=== PATIENT | male | born 2005 | race Caucasian/White ===

== ENCOUNTER 2024-07-28 08:31 | Emergency (ER) | payer BC, SELFPAY ==
[2024-07-28] VITALS (7 sets, daily range): BP systolic 89–125; BP diastolic 61–106; BMI 17.2
[2024-07-28] MEDS: NSS 1000 IV (10:33)
--- NOTE | 2024-07-28 10:44 | ED.GENMED ---
History of Present Illness
General
Chief Complaint: Fainting/Passed Out
Source: patient and family
Exam Limitations: none
Time Seen by Provider: 07/28/24 10:06
Nursing documentation reviewed up to this point in time: agreed with except (Patient denies any abdominal cramping or pain during episode.)
History of Present Illness
History of Present Illness:
Patient is a 19-year-old biological male (transgender ) presents to the ER for evaluation. Patient is on hormone replacement including estradiol spironolactone and progesterone. This morning patient woke up and felt some left-sided rib pain like
she' pulled a muscle.' She denies any injury. She walked to the bathroom because she felt very nauseous and had dry heaves and then felt hot and had a witnessed syncopal episode by mom. Mom reports she was probably out for couple seconds. She
got up and walked her to the steps to take her upstairs and she passed out again. Currently patient is feeling better. She had no associated shortness of breath and denies any shortness of breath now. The rib pain is resolved. Patient mentioned
abdominal cramping in triage note however denies any abdominal pain /cramping.
Her progesterone was recently creased from 100 mg once a day to 200 mg twice a day.
Patient does not smoke. History of DVT PE. She does go to school in [facility] and recently flew back last week.
She denies any lower extremity swelling or pain.
Review of Systems
Review of Systems
Allergies reviewed?: Yes
All Other Systems: ROS reviewed and negative except as documented in HPI and ROS
Constitutional: Reports no symptoms; Denies fever, fatigue or chills
Respiratory: Reports no symptoms; Denies trouble breathing
Cardiac: Reports syncope
ABD/GI: Reports nausea; Denies vomiting
Musculoskeletal: Reports no symptoms
Neurological: Reports no symptoms
Psychiatric: Reports no symptoms
Phy Exam
General Physical Exam
General Presentation: no apparent distress
General age: appears stated age
General Skin: warm and dry
General Mental: alert
General Hydration: appears well hydrated
Cardiovascular Exam
Cardiovascular Exam: regular rate/rhythm, no murmur and normal peripheral pulses
Pulmonary Exam
Pulmonary Exam: lungs clear and no respiratory distress
Neurological Exam
Neurological Exam: alert and oriented x3
Musculoskeletal Exam
Musculoskeletal Exam: full ROM
Skin Exam
Skin Exam: normal color and warm/dry
Psychiatric Exam
Psychiatric Exam: normal mood/affect
Course
Orders/Labs/Results
Orders:
Orders
07/28/24 09:00
EKG [Electrocardiogram (*1)] Urgent
Reason for Study: Syncope
07/28/24 09:01
EKG- Treatment ONCE
07/28/24 10:32
0.9% Sodium Chloride 1000 ml [Nss] 1,000 ml IV BOLUS
07/28/24 10:34
Complete Blood Count/With Diff Urgent
Comprehensive Metabolic Panel Urgent
D-Dimer Urgent
Lipase Urgent
Troponin I Urgent
07/28/24 11:51
Chest [CR Chest - 2 Views ] Urgent
Comment:
Reason For Exam: left side rib pain
Abnormal Lab Results
07/28/24
10:34
MCH 32.6 H pg
(27.0-31.0)
Absolute Neuts (auto) 7.5 H 10^3/uL
(1.4-6.5)
Absolute Monos (auto) 0.9 H 10^3/uL
(0.1-0.6)
Lymphocytes % 18.6 L %
(20.5-51.1)
Glucose 109 H mg/dl
(70-99)
07/28/24 10:34
07/28/24 10:34
Vital Signs
Initial and Last Documented VS:
Initial Vital Signs
Temp Pulse Resp BP Pulse Ox
98.8 F 93 16 98/61 99
07/28/24 08:56 07/28/24 08:56 07/28/24 08:56 07/28/24 08:56 07/28/24 08:56
Last Documented Vital Signs
Temp Pulse Resp BP Pulse Ox
98.8 F 73 14 90/77 100
07/28/24 08:56 07/28/24 12:00 07/28/24 12:00 07/28/24 12:00 07/28/24 12:00
MDM/Problems Addressed
Differential Diagnosis Includes:
Not limited to syncope, dehydration less likely PE
MDM/Problems Addressed:
Patient is a 19-year-old female who presented to the ER for 2 episodes of syncope. Patient felt nauseous when she woke up this morning and also had pain in the left rib/chest area .
Patient presented to the ER awake alert no acute distress she felt much better her nausea resolved. She no longer has any rib discomfort. She presents awake alert no acute distress she is on hormone replacement therapy and therefore D-dimer was
done and negative. She is nontachycardic and not short of breath not tachypneic. Lungs are clear. Troponin negative labs unremarkable. No acute findings and EKG. Patient was given fluids here in the ER will check a chest x-ray however we will
plan for discharge home
No acute findings on chest x-ray. Patient is well-appearing in no acute distress stable for discharge home.
*Radiology
Radiology exam reviewed: preliminary read by ED provider (I personally viewed the chest x-ray no acute findings)
*Pulse Oximetry
Patient hypoxic: no
*EKG
Heart Rate: 67
Rate: normal
Rhythm: sinus
Ischemia: no ischemia
*Critical Care Note
Total Time (30-74mins, 75-104mins- exclusive of procedures): Not Applicable
ED Attending Note
-
Portions of this chart may have been created with voice recognition software.� Occasional wrong word or��sound alike� substitutions may have occurred due to the inherent limitations of voice recognition software.
Discharge Plan
Departure
Patient Disposition: Home (Routine Discharge)
Date of Disposition: 07/28/24
Time of Disposition: 12:50
Patient with high blood pressure during this ER visit?: No
Condition: Fair
Covid-19: Not Applicable
Discharge Problem:
Syncope
Instructions: Syncope (Fainting) (DC)
Referrals:
[facility] [Provider Group]
[facility] [Outside]
NONE,* [Family Provider] -
Activity Restrictions/Additional Instructions:
stay well-hydrated Closely follow-up with family doctor in the next several days .
return if any worsening of symptoms.
Interventions
Interventions:
*Risk Screen - Suicide Last Done: 07/28/24 08:56
*General Assessment Last Done: 07/28/24 08:56
*Neglect/Abuse Screening Last Done: 07/28/24 08:56
*ED COVID-19 Vaccine History Last Done: 07/28/24 11:34
ED- Cardiac Assessment Last Done: 07/28/24 11:34
ED- Neurological Assessment Last Done: 07/28/24 11:34
Discharge Date and Time
Print Language: SLOVENIAN
[2024-07-28 10:50] LABS: % Basophils 0.3 % (0-2); % Eosinophils 1.2 % (0-6); % Immature Granulocytes 0.3 % (0-0.5); % Lymphocytes 18.6 % (20.5-51.1); % Monocytes 8.2 % (1.7-9.3); % Neutrophils 71.4 % (42.2-75.2); Absolute Eosinophils 0.1 10^3/uL (0-0.7); Absolute Monocytes 0.9 10^3/uL (0.1-0.6); Absolute Neutrophils 7.5 10^3/uL (1.4-6.5); Hematocrit 42.1 % (37.0-47.0); Hemoglobin 13.9 g/dL (12.0-16.0); Mean Corpuscular Hgb 32.6 pg (27.0-31.0); Mean Corpuscular Volume 98.6 fL (81.0-99.0); Nucleated Red Blood Cells % 0 %; Platelet Count 289 10^3/uL (130-400); Red Blood Cell Count 4.27 10^6/uL (4.20-5.40); Red Cell Dist. Width 11.8 % (11.5-14.5); White Blood Cell Count 10.5 10^3/uL (4.8-10.8)
[2024-07-28 10:59] LABS: ALT (SGPT) 17 U/L (0-35); AST (SGOT) 25 U/L (14-36); Albumin 4.7 g/dl (3.5-5.0); Alkaline Phosphatase 48 U/L (38-126); Blood Urea Nitrogen 13 mg/dl (7-17); Calcium 9.4 mg/dl (8.4-10.2); Carbon Dioxide 27 mmol/L (22-30); Chloride 101 mmol/L (98-107); Estimated Creatinine Clearance 94 ml/min; Glucose 109 mg/dl (70-99); Lipase 61 U/L (23-300); Potassium 4.8 mmol/L (3.5-5.1); Sodium 137 mmol/L (135-145); Total Bilirubin 1.3 mg/dl (0.2-1.3); Total Protein 7.3 g/dl (6.3-8.2); eGFR > 60.00
[2024-07-28 11:18] LABS: Troponin I < 0.012 ng/ml
[2024-07-28 11:34] LABS: D-Dimer < 0.27 ug/mlFEU (0.00-0.50)
== END 2024-07-28 13:08 | disposition home or self-care (01) ==
LOC: EMR 08:31
PROVIDERS: Nurse Practitioner; EMERGENCY PHYSICIAN Emergency Medicine
DX: R55 Syncope and collapse (principal); Z79.890 Hormone replacement therapy; F64.0 Transsexualism
CPT/HCPCS: 96360; 99285; 71046; 80053; 83690; 84484; 85025; 85379; 93005